=== PATIENT | male | born 1955 | race Caucasian/White ===

== ENCOUNTER 2020-01-07 17:06 | Emergency (ER) | payer OTHER ==
[~2020-01-07] VITALS: Ht 175.3 cm; Wt 85.9 kg
--- NOTE | 2020-01-07 17:24 | Emergency Department Note ---
History of Present Illnes History of Present Illness History of Present Illness This is a 64 year old male . 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 Onset (how long ago): hour(s) (3) Location: diffuse Radiation: Reports non-radiation Severity: moderate Onset quality: sudden Duration (how long): hour(s) Timing of current episode: constant Progression: unchanged Chronicity: new Context: Denies recent illness, Denies recent surgery, Denies recent immobilization, Denies recent travel, Denies trauma/injury, Denies new medications, Denies hx of DVT/PE, Denies non-compliance w/ medications, Denies other Relieving factors: none Exacerbating factors: none Associated symptoms: Reports rash; Denies chest pain, Denies shortness of breath Treatments prior to arrival: NSAID (Pt has hx of allergies to Alleve and took Naproxen by mistake) Past Medical/Family History Physician Review I have reviewed the patient's past medical and family history. Any updates have been documented here. Past Medical History Recent Fever: No Clinical Suspicion of Infectio: No New/Unexplained Change in Ment: No Past Medical History: Hypertension, Diabetes Other Surgery: Cervical Shoulder Social History Smoking Cessation: Never Smoker Alcohol Use: Occasional Any Illegal Drug Use: No Family History Family history of heart diseas: No Review of Systems Review of Systems Constitutional: Denies no symptoms, Denies as per HPI, Denies chills, Denies diaphoresis, Denies fever, Denies malaise, Denies weakness, Denies other Cardiovascular: Denies no symptoms, Denies as per HPI, Denies chest pain, Denies edema, Denies palpitations, Denies syncope, Denies other Respiratory: Denies cough, Denies dyspnea Integumentary: Reports as per HPI, Reports rash Review of other systems: All other systems negative Physical Exam Related Data Allergies: Coded Allergies: naproxen (Verified Allergy, Severe, anaphylaxis, 01/07/20) Vital signs reviewed: Yes Physical Exam CONSTITUTIONAL Constitutional: Present well-developed; Absent distressed HENT HENT: Present normocephalic EYES Eyes: Reports conjunctivae normal NECK Neck: Present supple PULMONARY Pulmonary: Present breath sounds normal CARDIOVASCULAR Cardiovascular: Present regular rhythm GASTROINTESTINAL Abdominal: Present soft GENITOURINARY SKIN Skin: Present rash (diffuse, angioedema mattie orbitaly) MUSCULOSKELETAL Musculoskeletal: Present ROM normal NEUROLOGICAL Neurological: Present alert, Present oriented x 3 PSYCHOLOGICAL Psychological: Present mood/affect normal Assessment & Plan Medical Decision Making MDM allergic reaction, CHRISS inhibitor reaction, anaphylaxis Reassessment Reassessment Pt felt better no respiratory distress Assessment & Plan Final Impression: (1) Allergic reaction caused by a drug Depart Disposition: HOME, SELF-assisted Meds Active Scripts Hydroxyzine Hcl (HYDROXYZINE HCL) 25 Mg Tablet, 25 MG PO QID for 5 Days, #20 TAB Prov:FERDINAND HALL MD 01/07/20 Famotidine (PEPCID) 20 Mg Tablet, 20 MG PO BID for 7 Days, #14 TAB Prov:FERDINAND HALL MD 01/07/20 Prednisone (PREDNISONE) 20 Mg Tab, 20 MG PO TID for 5 Days, #15 Prov:FERDINAND HALL MD 01/07/20 FERDINAND HALL MD Jan 07, 2020 17:24
[2020-01-07] MEDS ORDERED: SODIUM CHLORIDE 0.9% 1000ML 1,000 ML IV SCH (17:30)
[2020-01-07] MEDS ORDERED: DIPHENHYDRAMINE HCL INJ 50 MG/ML VIAL IV NR (17:30)
[2020-01-07] MEDS ORDERED: HYDROXYZINE HCL25 MG PO (17:34)
[2020-01-07] MEDS ORDERED: PREDNISONE20 MG PO (17:34)
[2020-01-07] MEDS ORDERED: PEPCID20 MG PO (17:34)
[2020-01-07] MEDS ORDERED: SODIUM CHLORIDE 0.9% 1000ML 1,000 ML ONE (17:43)
[2020-01-07] MEDS ORDERED: METHYLPREDNISOLONE SOD SUCC 125 MG/2ML VIAL ONE (17:43)
[2020-01-07] MEDS ORDERED: FAMOTIDINE 20 MG/2 ML VIAL IV ONE (17:43)
[2020-01-07] MEDS ORDERED: DIPHENHYDRAMINE HCL INJ 50 MG/ML VIAL ONE (17:43)
[2020-01-07 19:17] VITALS: BP 185/87
[2020-01-07] MEDS ORDERED: METHYLPREDNISOLONE SOD SUCC 125 MG/2ML VIAL IV SCH (21:00)
[2020-01-08] MEDS ORDERED: FAMOTIDINE 20 MG/2 ML VIAL IV SCH (09:00)
== END 2020-01-07 18:59 | disposition home or self-care (01) ==
LOC: FSED 17:30
DX: L27.0 Generalized skin eruption due to drugs and medicaments taken internally (principal); T39.315A Adverse effect of propionic acid derivatives, initial encounter; Y92.019 Unspecified place in single-family (private) house as the place of occurrence of the external cause
CPT/HCPCS: 96374; 96375; 99283; J1200; J2930; J7030

== ENCOUNTER 2024-01-27 09:49 | Emergency (ER) | payer MEDICARE ==
[~2024-01-27] VITALS: Ht 175.3 cm; Wt 84.4 kg
[~2024-01-27 09:49] MED LIST: HYDROXYZINE HCL25 MG PO; PEPCID20 MG PO; PREDNISONE20 MG PO
[2024-01-27 11:24] VITALS: PULSE 88; RESP 18; TEMP 98.6; O2SAT 100
[2024-01-27] MEDS: Morphine 4mg INJECTION 4 MG/ML INJ IV ONE (14:17)
[2024-01-27 14:22] LABS: BASOPHILS # (AUTO) 0.1 (0.0-0.1); BASOPHILS % 0.6 % (0.0-1.0); EOSINOPHILS # (AUTO) 0.1 (0.0-0.4); EOSINOPHILS % 0.6 % (0.0-6.0); HEMATOCRIT 37.9 % (38.2-49.6); HEMOGLOBIN 13.3 g/dL (14.0-18.0); LYMPHOCYTES # (AUTO) 1.8 (1.0-3.2); LYMPHOCYTES % 20.7 % (18.0-39.1); MEAN CORPUSCULAR HEMOGLOBIN 33.2 pg (28-32); MEAN CORPUSCULAR HGB CONC 35.1 g/dL (31-35); MEAN CORPUSCULAR VOLUME 94.5 fL (81-99); MONOCYTES # (AUTO) 0.8 (0.2-0.8); MONOCYTES % 8.7 % (4.4-11.3); NEUTROPHILS % 69.1 % (38.7-80.0); PLATELET COUNT 206 x10e3/uL (140-360); RED BLOOD COUNT 4.01 x10e6/uL (4.3-5.7); RED CELL DISTRIBUTION WIDTH 12.2 % (11.7-14.4); WHITE BLOOD COUNT 8.65 x10e3/uL (4.8-10.8)
[2024-01-27 14:43] LABS: ANION GAP 16.2 mmol/L (8-16); CALCIUM 9.7 mg/dL (8.4-10.2); CREATININE, SERUM 0.95 mg/dL (0.72-1.25); POTASSIUM 4.2 mmol/L (3.5-5.1)
[2024-01-27] MEDS ORDERED: NEURONTIN100 MG PO (16:22)
[2024-01-27] MEDS ORDERED: HYDROCODON-ACE1 EA11 PO (16:24)
== END 2024-01-27 17:03 | disposition home or self-care (01) ==
LOC: ER 11:49
DX: M54.50 Low back pain, unspecified (principal); M79.605 Pain in left leg; I10 Essential (primary) hypertension; E11.9 Type 2 diabetes mellitus without complications; E78.5 Hyperlipidemia, unspecified
CPT/HCPCS: 36415; 72148; 80048; 85025; 93971; 99284; J2270